=== PATIENT | male | born 2000 ===

== ENCOUNTER 2024-05-29 15:38 | Emergency (ER) | payer OTHER, SELFPAY ==
[2024-05-29 16:24] VITALS: BP 140/86; PULSE 75; RESP 18; TEMP 37.1; O2SAT 100; BMI 26.1
--- NOTE | 2024-05-29 16:28 | ED_ITS ---
HPI - General Adult General Chief complaint: Skin/Abscess/Foreign Body Stated complaint: Something on his Back Time Seen by Provider: 05/29/24 18:33 Source: patient, RN notes reviewed and old records reviewed Mode of arrival: ambulatory Limitations: no limitations History of Present Illness ED Provider: Juju HPI narrative: 24-year-old male presents for evaluation of a lump near his rectum and blood on the toilet paper after wiping. Symptoms started a couple of days ago. He was using medicated cooling wipes to treat hemorrhoids with minimal relief Denies any history of hemorrhoids. He is not a diabetic His pain is worse with sitting down. No fevers or chills. Related Data Previous Rx's ?Medication ?Instructions ?Recorded hydrocortisone acetate 25 mg 25 mg MO BID 1 week #24 ea 05/29/24 rectal suppository (Anucort-HC) Allergies Allergy/AdvReac Type Severity Reaction Status Date / Time No Known Allergies Allergy Verified 05/29/24 16:28 [No Known Allergies*] Review of Systems Constitutional: Constitutional: Denies body ache(s), Denies chills and Denies fever(s) Eyes: Eyes: Denies blurry vision ENT: Denies vertigo Cardiovascular: Cardiovascular: Denies chest pain Respiratory: Respiratory: Denies cough Gastrointestinal: Gastrointestinal: Denies abdominal pain and Reports hematochezia Musculoskeletal: Musculoskeletal: Denies back pain Integumentary/Breasts: Skin/Breast: Denies rash Neurologic: Denies vertigo Psychiatric: Psychiatric: Denies anxiety Physical Exam ED Vital Signs: Vital Signs - 24 hr 05/29/24 16:24 Temperature 98.7 F Pulse Rate 75 Respiratory Rate 18 Blood Pressure 140/86 H Pulse Oximetry 100 Oxygen Delivery Method Room Air BMI result Body Mass Index 26.1 GI Rectal Exam - Male: Yes visual inspection normal Course Course Course Narrative: RME, this is a rapid medical exam performed by Earnest Matute please refer to primary provider for complete H&P- 24-year-old male presents for evaluation of a lump just above his rectum. Not visualized in triage. Denies history of constipation or bloody stool. He is not a diabetic. Likely hemorrhoid versus pilonidal cyst. Plan for direct visualization when appropriate Medical Decision Making Medical Decision Making MDM Narrative: 24-year-old healthy male presents for evaluation of a lump near his rectum and bright red blood on the toilet paper after wiping. Clinically there was no evidence of perirectal abscess. I do not see any external hemorrhoids. Deferred digital rectal exam per patient request. Plan to treat for internal hemorrhoids given the history. Differential Diagnosis Differential Diagnoses: The differential diagnosis associated with the presentation includes Internal hemorrhoids External hemorrhoids Pilonidal abscess Sebaceous cyst Constipation Discharge Plan Discharge Clinical Impression: Hemorrhoids Patient Disposition: Home, Self-Care Instructions: Hemorrhoids (ED) Additional Instructions: You do not have any clear rectal abscess or pilonidal abscess. Your symptoms are likely related to an internal hemorrhoid Use the Anusol suppositories twice daily for 1 week. I also recommend that you increase fluid and fiber intake in your diet to prevent constipation. You may also by a Sitz bath to use with Epsom salt which is good for hemorrhoids Prescriptions: New hydrocortisone acetate [Anucort-HC] 25 mg suppository 25 mg MO BID 7 Days Qty: 24 0RF Print Language: [place]
[2024-05-29 18:52] VITALS: BP 140/70; PULSE 73; RESP 19; TEMP 36.8; O2SAT 99
[2024-05-29 19:06] VITALS: BP 140/70; PULSE 73; RESP 19; TEMP 36.8; O2SAT 99
== END 2024-05-29 19:06 | disposition home or self-care (01) ==
LOC: HO.ED 18:55
PROVIDERS: Emergency Provider Internal Medicine
DX: K64.8 Other hemorrhoids (principal)
CPT/HCPCS: 99282; 99283